=== PATIENT | male | born 1960 | race Caucasian/White ===

== ENCOUNTER 2018-12-18 09:03 | Day surgery (SDC) | payer OTHER ==
[2018-12-18] MEDS ORDERED: [UNRECOGNIZED DRUG - OTHER] TP ×2 (09:25→09:30)
[2018-12-18] MEDS ORDERED: PROPOFOL 20 ML (10:24)
[2018-12-18] MEDS ORDERED: MIDAZOLAM 1 MG/ML 2 ML INJ (10:24)
[2018-12-18] MEDS ORDERED: LIDOCAINE 2% (SDV) 5 ML INJ (10:24)
[2018-12-18] MEDS ORDERED: FENTAnyl 50 MCG/ML VIAL (10:24)
[2018-12-18] MEDS ORDERED: CEFAZOLIN 1 GM INJ (10:24)
[2018-12-18] MEDS ORDERED: OXYCODONE/ACETAMINOPHEN (5/325) TAB PO ×2 (10:30)
[2018-12-18] MEDS ORDERED: MEPERIDINE 25 MG INJ IV (10:30)
[2018-12-18] MEDS ORDERED: LABETALOL HCL 20MG INJ IV (10:30)
[2018-12-18] MEDS ORDERED: FENTAnyl 50 MCG/ML VIAL IV ×3 (10:30)
[2018-12-18] MEDS ORDERED: ONDANSETRON 4 MG INJ IV (10:30)
[2018-12-18] MEDS: POVIDONE IODINE 10% 28.4 GM OINT (11:06)
[2018-12-18] MEDS ORDERED: METOCLOPRAMIDE 10 MG INJ (11:16)
[2018-12-18] MEDS ORDERED: FAMOTIDINE 20 MG INJ (11:16)
[2018-12-18] MEDS ORDERED: ONDANSETRON 4 MG INJ (11:16)
[2018-12-18] MEDS: [UNRECOGNIZED DRUG - OTHER] TP (11:22)
[2018-12-18] MEDS ORDERED: KETOROLAC 30 MG INJ (11:29)
[2018-12-18] MEDS: hydrALAzine 20 MG INJ IV (13:16)
== END 2018-12-18 14:21 | disposition home or self-care (01) ==
LOC: SDS 09:03
DX: L60.0 Ingrowing nail (principal); E11.9 Type 2 diabetes mellitus without complications; I10 Essential (primary) hypertension; Z79.82 Long term (current) use of aspirin; Z79.4 Long term (current) use of insulin
CPT/HCPCS: 11750; 71045; 82962